=== PATIENT | male | born 1965 | race African-American/Black ===

== ENCOUNTER 2020-04-13 07:14 | Inpatient (IN) | payer BC ==
--- NOTE | 2020-04-13 08:12 | RAD ---
EXAM: Portable chest PROVIDED CLINICAL HISTORY: Low back pain COMPARISON: 11/26/2013 FINDINGS: Cardiac and mediastinal silhouette is within normal limits. No focal consolidation, pleural fluid or pneumothorax evident. IMPRESSION: No evidence for an acute cardiopulmonary process.
--- NOTE | 2020-04-13 08:22 | CT ---
Exam: CT brain PROVIDED CLINICAL HISTORY: Right-sided weakness COMPARISON: None FINDINGS: The ventricular system is normal in size and morphology. No evidence for intracranial hemorrhage or mass effect. Patchy bilateral diminished attenuation is seen involving the periventricular and deep cerebral white matter, most compatible with chronic microvascular ischemic change. The extracranial s oft tissues and osseous structures demonstrate no evidence for an acute abnormality. IMPRESSION: No evidence for intracranial hemorrhage or mass effect.
[2020-04-13 08:31] LABS: ALT (SGPT) 17 U/L (8-55); AST (SGOT) 19 U/L (5-34); Albumin 4.2 g/dL (3.5-5.0); Alkaline Phosphatase 69 U/L (40-110); Anion Gap 13 mmol/L (10-20); BUN (Urea Nitrogen) 15 mg/dL (8.4-25.7); Bilirubin, Total 1.1 mg/dL (0.2-1.2); Calc. Creatinine Clearance 0 mL/min (70-130); Calcium 9.2 mg/dL (7.8-10.44); Carbon Dioxide 25 mmol/L (22-29); Chloride 106 mmol/L (98-107); Globulin 2.9 g/dL (2.4-3.5); Glucose 113 mg/dL (70-105); Potassium 4.2 mmol/L (3.5-5.1); Protein, Total 7.1 g/dL (6.0-8.3); Sodium 140 mmol/L (136-145)
[2020-04-13 08:42] LABS: #Lymphocytes 0.9 thou/uL (1.20-3.40); #Monocytes 0.5 thou/uL (0.11-0.59); #Neutrophils 2.7 thou/uL (1.40-6.50); %Eosinophils 0.5 % (0.0-10.0); %Lymphocytes 20.8 % (21.0-51.0); %Monocytes 10.9 % (0.0-10.0); %Neutrophils 66.8 % (42.0-75.0); Hemoglobin 14.6 g/dL (14.0-18.0); Mean Corpuscular Hemoglobin 33.4 pg (27.0-31.0); Mean Platelet Volume 12.1 fL (7.4-10.4); Platelet Count 100 thou/uL (130-400); RBC Distribution Width 11.6 % (11.5-14.5); Red Blood Cell (RBC) Count 4.37 mill/uL (4.70-6.10); White Blood Cell (WBC) Count 4.1 thou/uL (4.8-10.8)
[2020-04-13 08:43] LABS: Large Platelets SLIGHT; MDiff Complete? YES; Platelet Morphology Comment Appears Decreased; RBC Morphology Normal
[2020-04-13] MEDS ORDERED: Aspirin Chewable 81 MG TAB ONE (09:35)
[2020-04-13] MEDS ORDERED: Acetaminophen 650 MG Suppository PR PRN (10:05)
[2020-04-13] MEDS ORDERED: hydrALAZINE 20 MG/ML VIAL SLOW IVP PRN (10:05)
[2020-04-13] MEDS ORDERED: Acetaminophen 325 MG TAB PO PRN (10:05)
--- NOTE | 2020-04-13 10:18 | PDOC.HHP ---
Hospitalist HPI - History of Present Illness Right sided weakness, slurred speach History of Present Illness: Mr. Marquez is a 55-year-old male with tobacco use, alcohol use who presents to the emergency room for 3 days of right-sided weakness. Patient reports that 3 days prior to admission he noticed that his right arm felt numb and his right leg felt weak. Patient states that he felt as though he had to drag his leg along. He also reports that some of his friends reported that his speech was a bit slurred. Right leg weakness greater than right arm weakness. He denies any changes in vision or any confusion. He denies any history of strokes. No history of diabetes. Patient is a 1/2 pack/day smoker and does use alcohol daily. Last drink was day prior to admission. Patient denies chest pain, shortness of breath, abdominal pain. No family history of cardiovascular disease. In emergency room initial vital signs 152/108, 72, 24, 98.0, 96% on room air. EKG showed normal sinus rhythm with no ischemic changes. CT of the brain with no acute abnormalities. H/H 14.6/44.2. WBC 4.1. Platelet count 100. BUNs/CR 15/1.16. Sodium 140, potassium 4.2, glucose 113. Patient received 325 mg of aspirin and was admitted to hospitalist service for further work-up. Hospitalist ROS - Review of Systems Constitutional: denies: fever, chills, sweats, weakness, malaise, other Eyes: denies: pain, vision change, conjunctivae inflammation, eyelid inflammation, redness, other ENT: denies: ear pain, ear discharge, nose pain, nose discharge, nose congestion, mouth pain, mouth swelling, throat pain, throat swelling, other Respiratory: denies: cough, dry, shortness of breath, hemoptysis, SOB with excertion, pleuritic pain, sputum, wheezing, other Cardiovascular: denies: chest pain, palpitations, orthopnea, paroxysmal noc. dyspnea, edema, light headedness, other Gastrointestinal: denies: nausea, vomiting, abdominal pain, diarrhea, constipation, melena, hematochezia, other Genitourinary: denies: dysuria, frequency, incontinence, hematuria, retention, other Musculoskeletal: denies: neck pain, shoulder pain, arm pain, back pain, hand pain, leg pain, foot pain, other Skin: denies: rash, lesions, terra, bruising, other Neurological: reports: weakness, numbness, change in speech - Medication Medications: Patient takes no home medications and reports it has been years since he last seen had medical care. He does not have a PCP. No known drug allergies Hospitalist History - Past Medical History Other Medical History: Patient denies any past medical history Patient is a 1 pack/day smoker and does drink alcohol daily less approximately 4 beers. - Past Surgical History Other Surgical History: Right orthopedic surgery for fracture repair years ago - Family History Other Family History: Denies family history of cardiovascular disease cancer diabetes - Social History Smoking Status: Current every day smoker Tobacco Type: cigarettes Alcohol: reports: Heavy (Daily, 4 beers) Drugs: reports: marijuana Living Situation: Alone Activity level: independent ambulation - Exam General Appearance: NAD, awake alert Eye: PERRL, anicteric sclera ENT: normocephalic atraumatic, no oropharyngeal lesions, moist mucosa Neck: supple, symmetric, no JVD, no thyromegaly, no lymphadenopathy, no carotid bruit Heart: RRR, no murmur, no gallops, no rubs, normal peripheral pulses Respiratory: CTAB, no wheezes, no rales, no ronchi, normal chest expansion, no tachypnea, normal percussion Gastrointestinal: soft, non-tender, non-distended, normal bowel sounds, no palpable masses, no hepatomegaly, no splenomegaly, no bruit Extremities: no cyanosis, no clubbing, no edema Skin: normal turgor, no lesions, no rashes Neurological: hemiplegia (Mild pronator drift on the right, 4-5 strength to right upper extremity, 3+ to right lower extremity) Neurological - other findings: Normal funduscopic exam, slight right-sided facial droop Musculoskeletal - other findings: 4/5 strength to right upper extremity, 3+ to right lower extremity Psychiatric: normal affect, normal behavior, A&O x 3 Hospitalist Results - Labs Result Diagrams: 04/13/20 07:58 04/13/20 07:58 Lab results: WBC 4.1 thou/uL (4.8-10.8) L 04/13/20 07:58 Hgb 14.6 g/dL (14.0-18.0) 04/13/20 07:58 Hct 44.2 % (42.0-52.0) 04/13/20 07:58 MCV 101.0 fL (78.0-98.0) H 04/13/20 07:58 Plt Count 100 thou/uL (130-400) L 04/13/20 07:58 Neutrophils % 66.8 % (42.0-75.0) 04/13/20 07:58 Sodium 140 mmol/L (136-145) 04/13/20 07:58 Potassium 4.2 mmol/L (3.5-5.1) 04/13/20 07:58 Chloride 106 mmol/L (98-107) 04/13/20 07:58 Carbon Dioxide 25 mmol/L (22-29) 04/13/20 07:58 BUN 15 mg/dL (8.4-25.7) 04/13/20 07:58 Creatinine 1.16 mg/dL (0.7-1.3) 04/13/20 07:58 Glucose 113 mg/dL (70-105) H 04/13/20 07:58 Calcium 9.2 mg/dL (7.8-10.44) 04/13/20 07:58 Total Bilirubin 1.1 mg/dL (0.2-1.2) 04/13/20 07:58 AST 19 U/L (5-34) 04/13/20 07:58 ALT 17 U/L (8-55) 04/13/20 07:58 Alkaline Phosphatase 69 U/L (40-110) 04/13/20 07:58 Troponin I Less than 0.010 ng/mL (< 0.028) 04/13/20 07:58 Serum Total Protein 7.1 g/dL (6.0-8.3) 04/13/20 07:58 Albumin 4.2 g/dL (3.5-5.0) 04/13/20 07:58 Hospitalist H&P A/P - Plan Plan: CVA 55-year-old male with no past medical history presents with 3 days of acute right sided weakness, facial droop and dysarthria concerning for CVA. Right leg weakness greater than arm weakness. CT brain with no acute findings. EKG with normal sinus rhythm. No obvious electrolyte abnormalities. Patient received aspirin in emergency room. Patient does have risk factors for stroke including tobacco use and is a 1/2 pack/day smoker. Patient is also not interactive with the medical system in years and does not have a PCP. Will admit for CVA with plans for MRI in the morning and neurology consult. Plan MRI brain, echo, carotid US Aspirin, statin Hemoglobin A1c, lipid panel, TSH Telemetry monitoring Every 4 neurochecks, fall precautions PT/OT/speech eval Neurology consult, recommendations appreciated Alcohol use History of daily alcohol use. Patient reports approximately 4 beers daily. Last drink was day prior to admission. Patient denies any history of seizures or admissions for alcohol withdrawals. Will place patient on ASE protocol and continue to monitor. Plan ASE protocol Magnesium, thiamine, vitamin B12 Thrombocytopenia Platelet level 100. Likely secondary to alcohol use. No obvious signs of bleeding on exam. Patient denies history of abnormal bleeding, hematochezia, melena. Will continue to monitor and recommend that patient establish care with a PCP for further work-up. Tobacco use Patient with history of daily tobacco use 1/2 pack/day. Counseled on smoking cessation. DVT prophylaxisLovenox Full codeMDM is patient's mother Case discussed with attending physician Dr. Aponte
[2020-04-13 11:18] LABS: Hemoglobin A1c 4.7 % (4.0-6.0)
[2020-04-13 13:44] VITALS: BMI 21.2
--- NOTE | 2020-04-13 15:22 | ULT ---
BILATERAL CAROTID DUPLEX ULTRASOUND: HISTORY: CVA, carotid bruit. TECHNIQUE: Grayscale, color-flow and spectral Doppler ultrasound imaging of the extracranial carotid artery syst ems was performed bilaterally. FINDINGS: No significant atherosclerotic plaque is seen within the carotid arteries bilaterally. Intimal thickn ess in the right common carotid artery measures 0.09 cm and in the left common carotid artery measures 0.08 cm There is no hemodynamically significant stenosis in the bilateral internal carotid arteries based on the peak systolic velocities and the ICA/CCA ratios. The peak systolic velocity in the right ICA measures 41.6 cm/s. The peak systolic velocity in the left ICA measures 70.3 cm/s. The right ICA/CC A ratio is 0.46, and the left ICA/CCA ratio is 0.88. Vertebral arteries: Antegrade flow is demonstrated in the vertebral arteries bilaterally. IMPRESSION: No hemodynamically significant stenosis in the bilateral internal carotid arteries.
--- NOTE | 2020-04-13 15:53 | CON ---
NEUROLOGY CONSULTATION DATE OF CONSULTATION: 04/13/2020 REASON FOR CONSULTATION: Right-sided weakness/slurred speech. HISTORY OF PRESENT ILLNESS: Mr. Marquez is a 55-year-old male with history significant for tobacco abuse, alcohol abuse, presented to the emergency room with a 3-day history of right-sided weakness. Per the patient, three days prior to the admission, he noted tingling and paresthesias in his right leg, which became weak. Per the patient, he has to drag his right leg along while walking, and his speech was also slurred. He also noticed weakness in his right upper extremity. The patient denies nausea, vomiting, headache, chest pain, abdominal pain, loss of vision, double vision, dizziness, recent illness, shortness of breath, chest pain, or exposure to COVID. In the emergency room, vital signs were done, which showed his blood pressure was 152/108, pulse 72, respiratory rate 18. CT scan did not show any abnormalities. He was given aspirin and admitted for further stroke workup. REVIEW OF SYSTEMS: All systems reviewed and were negative except the pertinent positives and negatives mentioned in the HPI. MEDICATIONS: The patient does not take any medications at home. He does not have a PCP. ALLERGIES: NO KNOWN DRUG ALLERGIES. PAST MEDICAL HISTORY: There is no past medical history. The patient is a one pack per day smoker and does drink alcohol daily, approximately 4 beers. PAST SURGICAL HISTORY: Right orthopedic surgery for fracture repair several years ago. FAMILY HISTORY: He denies family history of coronary artery disease, cancer, or diabetes. SOCIAL HISTORY: The patient lives alone. He is a heavy drinker, 4 beers a day. He uses marijuana and current every day smoker. PHYSICAL EXAMINATION: 140/90 88 17 General Appearance: NAD, awake alert Eye: PERRL, anicteric sclera ENT: normocephalic atraumatic, no oropharyngeal lesions, moist mucosa Neck: supple, symmetric, no JVD, no thyromegaly, no lymphadenopathy, no carotid bruit Heart: RRR, no murmur, no gallops, no rubs, normal peripheral pulses Respiratory: CTAB, no wheezes, no rales, no ronchi, normal chest expansion, no tachypnea, normal percussion Gastrointestinal: soft, non-tender, non-distended, normal bowel sounds, no palpable masses, no hepatomegaly, no splenomegaly, no bruit Extremities: no cyanosis, no clubbing, no edema Skin: normal turgor, no lesions, no rashes Neurological - Mental status, the patient is alert and oriented to person, place, and time. Recent and remote memory intact. Fund of knowledge is appropriate. Speech is clear. Cranial nerves II through XII intact except VII, right facial droop. Motor, muscle tone and bulk are normal. Strength 4/5 in the right upper extremity, 3+/5 in the right lower extremity, 5/5 in the left upper and lower extremity. Sensory intact. Cerebellar, finger-nose testing slow on the right pronator drift. Gait deferred due to the patient's safety reason. DATA REVIEWED: WBC 4.1 thou/uL (4.8-10.8) L 04/13/20 07:58 Hgb 14.6 g/dL (14.0-18.0) 04/13/20 07:58 Hct 44.2 % (42.0-52.0) 04/13/20 07:58 MCV 101.0 fL (78.0-98.0) H 04/13/20 07:58 Plt Count 100 thou/uL (130-400) L 04/13/20 07:58 Neutrophils % 66.8 % (42.0-75.0) 04/13/20 07:58 Sodium 140 mmol/L (136-145) 04/13/20 07:58 Potassium 4.2 mmol/L (3.5-5.1) 04/13/20 07:58 Chloride 106 mmol/L (98-107) 04/13/20 07:58 Carbon Dioxide 25 mmol/L (22-29) 04/13/20 07:58 BUN 15 mg/dL (8.4-25.7) 04/13/20 07:58 Creatinine 1.16 mg/dL (0.7-1.3) 04/13/20 07:58 Glucose 113 mg/dL (70-105) H 04/13/20 07:58 Calcium 9.2 mg/dL (7.8-10.44) 04/13/20 07:58 Total Bilirubin 1.1 mg/dL (0.2-1.2) 04/13/20 07:58 AST 19 U/L (5-34) 01/20/21 07:58 ALT 17 U/L (8-55) 04/13/20 07:58 Alkaline Phosphatase 69 U/L (40-110) 04/13/20 07:58 Troponin I Less than 0.010 ng/mL (< 0.028) 04/13/20 07:58 Serum Total Protein 7.1 g/dL (6.0-8.3) 04/13/20 07:58 Albumin 4.2 g/dL (3.5-5.0) 04/13/20 07:58 ASSESSMENT AND PLAN: Mr. Zachery Marquez is a 55-year-old male with no significant medical history presented with a 3-day history of right facial droop with right-sided weakness. Head CT did not reveal any acute findings. The patient received aspirin in the emergency room. He does have risk factors for stroke, so he was admitted for further workup. MRI of the brain to assess intracranial process. 2D echo to evaluate for left ventricular ejection fraction. Carotid Dopplers to assess for hemodynamically significant stenosis. Start aspirin and high- intensity statin for secondary stroke prevention. Check hemoglobin A1c, lipid panel, and TSH. Telemetry to rule out arrhythmias. Neuro checks every 4 hours. PT/OT/Speech. Continue CIWA protocol. Consider thiamine, vitamin B12, and magnesium. The patient was counseled about tobacco and alcohol abuse. DVT prophylaxis. We will continue to follow. Thank you for the consult. Job ID: [id number] MTDD
[2020-04-13] MEDS ORDERED: Atorvastatin Calcium 40 MG TAB PO SCH (21:00)
[2020-04-14 06:19] LABS: Anion Gap 12 mmol/L (10-20); BUN (Urea Nitrogen) 13 mg/dL (8.4-25.7); Calc. Creatinine Clearance 71 mL/min (70-130); Calcium 8.9 mg/dL (7.8-10.44); Carbon Dioxide 26 mmol/L (22-29); Cardiac Risk 2.4 (Less than 4.5); Chloride 105 mmol/L (98-107); Cholesterol 158 mg/dl (< 200 Desired); Glucose 97 mg/dL (70-105); HDL Cholesterol 66 mg/dL (>60 Neg Risk); LDL Cholesterol, Calculated 80 mg/dL; Potassium 4.6 mmol/L (3.5-5.1); Sodium 138 mmol/L (136-145); Triglycerides 58 mg/dL (Less than 150)
[2020-04-14 06:40] LABS: #Basophils 0.1 thou/uL (0.0-0.2); #Eosinphils 0.1 thou/uL (0.0-0.7); #Lymphocytes 1.4 thou/uL (1.20-3.40); #Monocytes 0.6 thou/uL (0.11-0.59); #Neutrophils 2.1 thou/uL (1.40-6.50); %Basophils 1.2 % (0.0-1.0); %Eosinophils 3.4 % (0.0-10.0); %Lymphocytes 32.7 % (21.0-51.0); %Monocytes 13.8 % (0.0-10.0); %Neutrophils 48.9 % (42.0-75.0); Hemoglobin 14.2 g/dL (14.0-18.0); Mean Corpuscular Hemoglobin 32.3 pg (27.0-31.0); Mean Platelet Volume 11.7 fL (7.4-10.4); Platelet Count 104 thou/uL (130-400); RBC Distribution Width 11.6 % (11.5-14.5); White Blood Cell (WBC) Count 4.2 thou/uL (4.8-10.8)
--- NOTE | 2020-04-14 08:15 | PDOC.HOSPP ---
- Subjective Encounter Date: 04/14/20 Encounter Time: 08:13 Subjective: Mr. Marquez was seen this morning in follow-up to stroke sx. He has noticed more strength in his right arm by practicing writing his name. He states that his right leg strength has also improved. He still feels some weakness, but denies any numbness. He denies vision changes, hearing changes, nausea, and vomiting. - Objective Vital Signs & Weight: Vital Signs (12 hours) Temp Pulse Resp BP BP Pulse Ox 04/14/20 04:00 98.2 F 59 L 12 139/89 139/89 98 04/14/20 00:00 98.0 F 64 12 134/79 134/79 98 Weight Weight 54.431 kg I&O: 04/13/20 04/14/20 04/15/20 06:59 06:59 06:59 Intake Total 300 Balance 300 Result Diagrams: 04/14/20 05:42 04/14/20 05:42 Hospitalist ROS - Review of Systems Eyes: denies: vision change Respiratory: denies: shortness of breath Gastrointestinal: denies: nausea, vomiting, abdominal pain, diarrhea, constipation Neurological: reports: weakness (right arm and leg.). denies: numbness - Medication Medications: Active Medications Generic Name Dose Route Start Last Admin Trade Name Freq PRN Reason Stop Dose Admin Atorvastatin Calcium 40 mg 04/13/20 21:00 04/13/20 20:50 Atorvastatin Calcium 40 Mg Tab PO 40 mg HS STEPHANIE Administration - Exam Eye: PERRL, anicteric sclera Neck: no JVD Heart: RRR, no murmur, no gallops, no rubs, normal peripheral pulses Respiratory: CTAB, no wheezes, no rales, no ronchi, normal chest expansion, no tachypnea Extremities: no cyanosis, no edema Neurological: cranial nerve grossly intact (CNVII- slight facial droop), normal sensation to touch, no new deficit, speech deficit (slightly slurred) Psychiatric: A&O x 3 Hosp A/P (1) Stroke Code(s): I63.9 - CEREBRAL INFARCTION, UNSPECIFIED Status: Acute (2) Smoking Code(s): F17.200 - NICOTINE DEPENDENCE, UNSPECIFIED, UNCOMPLICATED Status: Acute (3) Thrombocytopenia Code(s): D69.6 - THROMBOCYTOPENIA, UNSPECIFIED Status: Acute - Plan * stroke- continue with neurology. Continue with statin and aspirin for stroke prevention. * alcohol use- replenish and monitor thiamine, vitamin B12, and magnesium levels. * smoking- treatment counselor on smoking cessation. Watch for withdrawal symptoms. * thrombocytopenia- no signs of bleeding. monitor platelet levels.
--- NOTE | 2020-04-14 08:55 | MRI ---
MRI brain noncontrast HISTORY: TIA. 3 day history of right-sided weakness and slurred speech. FINDINGS: Within the left side of the selwyn, a slightly lobular oval focus of restricted diffusion shaheen sures up to 1.1 cm length. Immediately inferior within the right side of the selwyn is a 0.5 cm focus of restricted diffusion. Corresponding defects on the ADC mapping images. On the FLAIR and T2-weighte d images, there is moderately increased signal at these locations. Chronic ischemic small vessel disease throughout the periventricular white matter and old lacunar inf arcts at the basal ganglia are also evident. Appropriate flow voids at the brain base. There is no mass effect or shift of midline structures. IMPRESSION : Bilateral foci of acute infarct (correlating with 3 day history) involving each side of the selwyn, lef t greater than right.
[2020-04-14] MEDS ORDERED: Enoxaparin Sodium 40 MG/0.4 ML SYRINGE SC SCH (09:00)
[2020-04-14] MEDS ORDERED: Aspirin 81 mg Enteric Coated Tablet PO SCH (09:00)
[2020-04-14] MEDS ORDERED: Thiamine 100 MG TAB PO SCH (09:00)
[2020-04-14] MEDS ORDERED: Magnesium Oxide 250 MG TAB PO SCH (09:00)
[2020-04-14] MEDS ORDERED: Cyanocobalamin (Vitamin B-12) 1,000 MCG TAB PO SCH (09:00)
[2020-04-14 11:43] VITALS: TEMP 98.3
[2020-04-14 12:43] VITALS: BP 137/83
--- NOTE | 2020-04-14 12:58 | PDOC.HOSPP ---
- Subjective Encounter Date: 04/14/20 Encounter Time: 12:55 Subjective: Mr. Marquez was seen today in follow-up of acute CVA. He says the weakness he experienced has improved. He has bee walking without difficulty. - Objective Vital Signs & Weight: Vital Signs (12 hours) Temp Pulse Resp BP BP BP BP 04/14/20 12:00 137/83 04/14/20 11:42 98.3 F 55 L 20 137/83 04/14/20 08:46 173/99 H 158/91 H 04/14/20 08:18 98.1 F 64 20 133/90 04/14/20 08:00 133/90 04/14/20 04:00 98.2 F 59 L 12 139/89 139/89 Pulse Ox 04/14/20 12:00 04/14/20 11:42 96 04/14/20 08:46 04/14/20 08:18 98 04/14/20 08:00 04/14/20 04:00 98 Weight Weight 120 lb I&O: 04/13/20 04/14/20 04/15/20 06:59 06:59 06:59 Intake Total 300 Balance 300 Result Diagrams: 04/14/20 05:42 04/14/20 05:42 Hospitalist ROS - Medication Medications: Active Medications Generic Name Dose Route Start Last Admin Trade Name Gianfranco PRN Reason Stop Dose Admin Aspirin 81 mg 04/14/20 09:00 04/14/20 09:07 Aspirin 81 Mg Enteric Coated Tablet PO 81 mg DAILY STEPHANIE Administration Atorvastatin Calcium 40 mg 04/13/20 21:00 04/13/20 20:50 Atorvastatin Calcium 40 Mg Tab PO 40 mg HS STEPHANIE Administration Cyanocobalamin 1,000 mcg 04/14/20 09:00 04/14/20 09:07 Cyanocobalamin (Vitamin B-12) 1,000 Mcg Tab PO 1,000 mcg DAILY STEPHANIE Administration Enoxaparin Sodium 40 mg 04/14/20 09:00 04/14/20 09:07 Enoxaparin Sodium 40 Mg/0.4 Ml Syringe SC 40 mg 0900 STEPHANIE Administration Magnesium Oxide 250 mg 04/14/20 09:00 04/14/20 09:07 Magnesium Oxide 250 Mg Tab PO 250 mg DAILY STEPHANIE Administration Thiamine HCl 100 mg 04/14/20 09:00 04/14/20 09:07 Thiamine 100 Mg Tab PO 100 mg DAILY STEPHANIE Administration - Exam Eye: PERRL, anicteric sclera Heart: RRR, no murmur, no gallops, no rubs, normal peripheral pulses Respiratory: CTAB, no wheezes, no rales, no ronchi, normal chest expansion, no tachypnea, normal percussion Gastrointestinal: soft, non-tender, non-distended, normal bowel sounds, no palpable masses, no hepatomegaly Extremities: no cyanosis, no edema Hosp A/P (1) Acute CVA (cerebrovascular accident) Code(s): I63.9 - CEREBRAL INFARCTION, UNSPECIFIED Status: Acute (2) Smoking Code(s): F17.200 - NICOTINE DEPENDENCE, UNSPECIFIED, UNCOMPLICATED Status: Acute - Plan * Acute CVA- the MRI demonstrates changes consistent with acute infarction in the selwyn * Tobacco abuse- discussed with the patient- may consider chantix * Await Echo, and hopefully home thereafter
[2020-04-14 13:46] LABS: SARS-CoV-2 PCR by NAA Not Detected (NotDetected)
--- NOTE | 2020-04-14 13:52 | PDOC.NEUPN ---
- Subjective Encounter Date: 04/14/20 Subjective: Mr. Marquez is doing well and his weakness has improved since admission - Objective Vital Signs & Weight: Vital Signs (12 hours) Temp Pulse Resp BP BP BP BP 04/14/20 12:00 137/83 04/14/20 11:42 98.3 F 55 L 20 137/83 04/14/20 08:46 173/99 H 158/91 H 04/14/20 08:18 98.1 F 64 20 133/90 04/14/20 08:00 133/90 04/14/20 04:00 98.2 F 59 L 12 139/89 139/89 Pulse Ox 04/14/20 12:00 04/14/20 11:42 96 04/14/20 08:46 04/14/20 08:18 98 04/14/20 08:00 04/14/20 04:00 98 Weight Weight 120 lb I&O: 04/13/20 04/14/20 04/15/20 06:59 06:59 06:59 Intake Total 300 Balance 300 Result Diagrams: 04/14/20 05:42 04/14/20 05:42 Radiology Reviewed by me: Yes EKG Reviewed by me: Yes ROS - Review of Systems Constitutional: denies: fever, chills, sweats, weakness, malaise, other Eyes: denies: pain, vision change, conjunctivae inflammation, eyelid inflammation, redness, other ENT: denies: ear pain, ear discharge, nose pain, nose discharge, nose congest ion, mouth pain, mouth swelling, throat pain, throat swelling, other Respiratory: denies: cough, dry, shortness of breath, hemoptysis, SOB with excertion, pleuritic pain, sputum, wheezing, other Cardiovascular: denies: no pertinent history, AFIB, CAD, CHF, HTN, CA, Syncope, Hyperlipidemia, Mitral valve stenosis, Aortic stenosis, Valve insufficiency, Pulmonary hypertension, Other Gastrointestinal: denies: nausea, vomiting, abdominal pain, diarrhea, constipation, melena, hematochezia, other Genitourinary: denies: dysuria, frequency, incontinence, hematuria, retention, other Musculoskeletal: denies: neck pain, shoulder pain, arm pain, back pain, hand pain, leg pain, foot pain, other Skin: denies: rash, lesions, terra, bruising, other - Medication Medications: Active Medications Generic Name Dose Route Start Last Admin Trade Name Gianfranco PRN Reason Stop Dose Admin Aspirin 81 mg 04/14/20 09:00 04/14/20 09:07 Aspirin 81 Mg Enteric Coated Tablet PO 81 mg DAILY STEPHANIE Administration Atorvastatin Calcium 40 mg 04/13/20 21:00 04/13/20 20:50 Atorvastatin Calcium 40 Mg Tab PO 40 mg HS STEPHANIE Administration Cyanocobalamin 1,000 mcg 04/14/20 09:00 04/14/20 09:07 Cyanocobalamin (Vitamin B-12) 1,000 Mcg Tab PO 1,000 mcg DAILY STEPHANIE Administration Enoxaparin Sodium 40 mg 04/14/20 09:00 04/14/20 09:07 Enoxaparin Sodium 40 Mg/0.4 Ml Syringe SC 40 mg 0900 STEPHANIE Administration Magnesium Oxide 250 mg 04/14/20 09:00 04/14/20 09:07 Magnesium Oxide 250 Mg Tab PO 250 mg DAILY STEPHANIE Administration Thiamine HCl 100 mg 04/14/20 09:00 04/14/20 09:07 Thiamine 100 Mg Tab PO 100 mg DAILY STEPHANIE Administration - Exam General Appearance: awake alert Eye: PERRL ENT: normocephalic atraumatic Neck: supple Respiratory: CTAB Cardiovascular: RRR Gastrointestinal: soft Extremities: no cyanosis Skin: normal turgor Neurological: no new deficit Neurological - other findings: Right pronator drift Musculoskeletal: normal tone, normal strength, no muscle wasting PSYCH: normal affect, normal behavior, A&O x 3 Results - Labs Result Diagrams: 04/14/20 05:42 04/14/20 05:42 Lab results: WBC 4.2 thou/uL (4.8-10.8) L 04/14/20 05:42 Hgb 14.2 g/dL (14.0-18.0) 04/14/20 05:42 Hct 44.3 % (42.0-52.0) 04/14/20 05:42 MCV 101.0 fL (78.0-98.0) H 04/14/20 05:42 Plt Count 104 thou/uL (130-400) L 04/14/20 05:42 Neutrophils % 48.9 % (42.0-75.0) 04/14/20 05:42 Sodium 138 mmol/L (136-145) 04/14/20 05:42 Potassium 4.6 mmol/L (3.5-5.1) 04/14/20 05:42 Chloride 105 mmol/L (98-107) 04/14/20 05:42 Carbon Dioxide 26 mmol/L (22-29) 04/14/20 05:42 BUN 13 mg/dL (8.4-25.7) 04/14/20 05:42 Creatinine 0.89 mg/dL (0.7-1.3) 04/14/20 05:42 Glucose 97 mg/dL (70-105) 04/14/20 05:42 Calcium 8.9 mg/dL (7.8-10.44) 04/14/20 05:42 Total Bilirubin 1.1 mg/dL (0.2-1.2) 04/13/20 07:58 AST 19 U/L (5-34) 04/13/20 07:58 ALT 17 U/L (8-55) 04/13/20 07:58 Alkaline Phosphatase 69 U/L (40-110) 04/13/20 07:58 Troponin I Less than 0.010 ng/mL (< 0.028) 04/13/20 07:58 Serum Total Protein 7.1 g/dL (6.0-8.3) 04/13/20 07:58 Albumin 4.2 g/dL (3.5-5.0) 04/13/20 07:58 - Radiology Interpretation MRI - head Additional Comment: MRI of the brain was consistent with acute lacunar infarcts in the [place] bilaterally PN A/P (1) Acute CVA (cerebrovascular accident) Code(s): I63.9 - CEREBRAL INFARCTION, UNSPECIFIED Status: Acute (2) Smoking Code(s): F17.200 - NICOTINE DEPENDENCE, UNSPECIFIED, UNCOMPLICATED Status: Acute (3) Stroke Code(s): I63.9 - CEREBRAL INFARCTION, UNSPECIFIED Status: Acute (4) Thrombocytopenia Code(s): D69.6 - THROMBOCYTOPENIA, UNSPECIFIED Status: Acute - Plan Daily Plan: PT/OT, speech therapy, out of bed/ambulate Mr. Marquez is a 55-year-old male who presented with strokelike symptoms including focal weakness on the right which is now improved. MRI of the brain reviewed which was consistent with the tiny acute infarcts in the [place] left greater than right. Head CT initially did not reveal any acute intracranial pathology. Carotid Dopplers did not reveal hemodynamically significant stenosis. 2D echo to evaluate for left ventricular ejection fraction is pending at this time. Neurochecks every 4 hours. Strict control of blood pressure and blood glucose. Telemetry to rule out arrhythmias. Continue aspirin and high intensity statin for secondary stroke prevention. Continue home medications. Continue medical management per primary team. PT/OT/speech. Plan discussed in detail with the patient and also with the primary attending Dr. Myron Guerrero
--- NOTE | 2020-04-14 13:57 | PDOC.EEG ---
Neurology EEG Report - Report Report: This EEG was performed using 24 channel [employer] video EEG machine with 24 disc electrodes. This was an extended 2 hours 6 minutes of inpatient video EEG recording. Digital analysis of the EEG was done for spike and seizure detection which revealed no abnormalities. Background: There is a nonsustained posterior background rhythm of 8.5 -9 Hz. The background rhythm attenuates with eye opening and enhances with eye closure. Hyperventilation: Not performed. Photic Stimulation: No significant response. Sleep: Drowsiness is observed. EEG Diagnosis: Normal awake and drowsy EEG.
--- NOTE | 2020-04-20 13:04 | PDOC.DS.DS ---
Provider Date of Admission: 04/13/20 10:15 Date of Discharge: 04/14/20 Admitting Provider: Alessandro Aponte MD Consultations: Neurology Primary Care Physician: NO PCP PROVIDER Course Hospital Course: Mr. Marquez is a very pleasant 55 year old gentleman with no significant past medical history. He presented to the ER a few days after he began experiencing weakness in his right upper and lower extremity. He was evaluated in the ER and had a CT scan of the brain which was negative for ant acute change. He was admitted due to concern for an acute CVA. An MRI was performed, and he was found to have bilateral infarct of the [place]. Echocardiogram was performed was essentially unremarkable. He has a history of tobacco abuse, and alcohol abuse. He was counselled on the dangers of both. At the time of discharge he was ambulating well, and his symptoms had almost completely resolved. He was discharged home and instructed to follow-up with his primary care provider in 1- 2 weeks Resuscitation Status: 04/13/20 10:05 Resuscitation Status Routine Co-Sign Provider: Resuscitation Status: FULL: Full Resuscitation Lab Results: 04/14/20 05:42 04/14/20 05:42 Vitals: Weight Weight 120 lb Physical Exam: The patient was seen and examined on the day of discharge. Problem (1) Acute CVA (cerebrovascular accident) Code(s): I63.9 - CEREBRAL INFARCTION, UNSPECIFIED Status: Acute (2) Smoking Code(s): F17.200 - NICOTINE DEPENDENCE, UNSPECIFIED, UNCOMPLICATED Status: Acute Plan Prescriptions: Aspirin [Aspirin EC] 325 mg PO DAILY #30 tablet. Varenicline Tartrate [Chantix] 0.5 mg PO BID #60 tab Folic Acid [Folvite] 1 mg PO DAILY #30 tab Atorvastatin Calcium [Lipitor] 40 mg PO HS #30 tab Thiamine 100 mg PO DAILY #30 tab Home Medications: Medication Instructions Recorded Confirmed Type Aspirin [Aspirin EC] 325 mg PO DAILY #30 tablet. 04/14/20 Rx Atorvastatin Calcium [Lipitor] 40 mg PO HS #30 tab 04/14/20 Rx Folic Acid [Folvite] 1 mg PO DAILY #30 tab 04/14/20 Rx Thiamine 100 mg PO DAILY #30 tab 04/14/20 Rx Varenicline Tartrate [Chantix] 0.5 mg PO BID #60 tab 04/14/20 Rx Allergies: No Known Allergies Allergy (Verified 04/13/20 13:25) Discharge Instructions:: Follow-up with your Primary Care Provider in 2 weeks Activity:: Activity as Tolerated Referrals: PROVIDER,NO PCP [Primary Care Provider] - Disposition: HOME Quality CORE MEASURES:: Stroke/TIA Did you prescribe antithrombotic therapy?: Yes Did you prescribe anticoagulant for A Fib/Flutter?: Yes Did you prescribe a statin medication?: Yes
--- NOTE | 2020-04-30 20:36 | EKG ---
Test Reason : Blood Pressure : / mmHG Vent. Rate : 070 BPM Atrial Rate : 070 BPM P-R Int : 134 ms QRS Dur : 072 ms QT Int : 384 ms P-R-T Axes : 062 065 075 degrees QTc Int : 414 ms Normal sinus rhythm Normal ECG Confirmed by TOYIN FITZGERALD, SARA ([id number]), organisation and methods analyst JIMENA HERNANDEZ ([id number]) on 04/30/2020 8:36:33 PM Referred By: Confirmed By:SARA DEAL MD
== END 2020-04-14 17:43 | disposition home or self-care (01) | DRG 65 ==
LOC: ERS 07:14 → ERHOLD 10:15 → 3SE 12:55
PROVIDERS: ADMIT Internal Medicine; ATTEND Internal Medicine
DX: I63.89 Other cerebral infarction (principal); G81.91 Hemiplegia, unspecified affecting right dominant side; R47.1 Dysarthria and anarthria; R29.704 NIHSS score 4; Z20.822 Contact with and (suspected) exposure to COVID-19; F17.210 Nicotine dependence, cigarettes, uncomplicated; F10.10 Alcohol abuse, uncomplicated; D69.59 Other secondary thrombocytopenia; R47.81 Slurred speech
CPT/HCPCS: 36415; 70450; 70551; 71045; 80048; 80053; 80061; 82607; 82746; 83036; 83735; 84443; 84484; 85025; 87635; 93005; 93306; 93880; 95712; 95819; 95957; J1650; U0003; U0005